=== PATIENT | female | born 1960 | race Caucasian/White ===

== ENCOUNTER 2019-12-22 08:35 | Emergency (ER) | payer SELFPAY ==
[~2019-12-22] VITALS: Ht 167.6 cm; Wt 81.8 kg
[2019-12-22] MEDS ORDERED: LIDOCAINE 5% TRANSDERMAL PATCH TD ONE (11:45)
[2019-12-22] MEDS ORDERED: ACETAMINOPHEN 500 MG TABLET PO ONE (11:45)
[2019-12-22] MEDS ORDERED: IBUPROFEN 600 MG TABLET PO ONE (11:45)
[2019-12-22 12:02] LABS: APPEARANCE,URINE CLEAR (CLEAR); BILIRUBIN,URINE NEGATIVE (NEGATIVE); GLUCOSE, URINE (UA) NEGATIVE (NEGATIVE); KETONES,URINE NEGATIVE (NEGATIVE); LEUKOCYTE ESTERASE ,URINE NEGATIVE (NEGATIVE); NITRATE,URINE NEGATIVE (NEGATIVE); OCCULT BLOOD,URINE NEGATIVE (NEGATIVE); PROTEIN,URINE NEGATIVE (NEGATIVE); UROBILINOGEN,URINE 0.2 mg/dL (<=1.0)
[2019-12-22 12:08] VITALS: BP 141/80
== END 2019-12-22 12:27 | disposition home or self-care (01) ==
LOC: EMS 08:37
DX: M54.16 Radiculopathy, lumbar region (principal)